=== PATIENT | female | born 1950 | race Caucasian/White ===

== ENCOUNTER 2021-10-06 09:35 | Inpatient (IN) ==
[~2021-10-06 09:35] MED LIST: Buffered Lidocaine 1% SYRIN 1 ml INTRADERM ONE; DiMENhydriNATE IV 50 mg/ml 1 ml VIAL IV PUSH ONE; HYDROcodone/ACETAMIN 5/325 mg TAB PO PRN; Lactated Ringers 1000 ml BAG 1,000 ML IV SCH; Metoclopramide 5 MG/ML VIAL (10 mg) IV PRN; Naloxone 0.4 mg VIAL 0.4 mg/ml 1 ml VIAL IV PRN; Ondansetron 4 mg VIAL 2 MG/ML 2 ml VIAL IV PRN; fentaNYL 100 mcg/2 ml 50 MCG/ML VIAL IV PRN
[2021-10-06] MEDS ORDERED: fentaNYL 100 mcg/2 ml 50 MCG/ML VIAL ONE (09:50)
[2021-10-06] MEDS ORDERED: Ondansetron 4 mg VIAL 2 MG/ML 2 ml VIAL ONE (09:50)
[2021-10-06] MEDS ORDERED: diPHENhydraMINE IV 50 MG/ML 1 ml VIAL (BENADRYL) ONE (09:50)
[2021-10-06] MEDS ORDERED: Lidocaine 2% PF 5 ML VIAL ONE (09:50)
[2021-10-06] MEDS ORDERED: Midazolam 2 mg/2 ml VIAL 1 mg/ml 2 ml VIAL (2 mg) ONE (09:50)
[2021-10-06] MEDS ORDERED: Buffered Lidocaine 1% SYRIN 1 ml INTRADERM ONE (10:38)
[2021-10-06] MEDS ORDERED: DiMENhydriNATE IV 50 mg/ml 1 ml VIAL ONE (10:38)
[2021-10-06] MEDS ORDERED: ceFAZolin 2 GM in NS PREMIX 2 GM/100 ML BAG IVPB ONE (10:38)
[2021-10-06] MEDS ORDERED: Phenylephrine IV 10 MG/ML 1 ml VIAL ONE (12:39)
[2021-10-06] MEDS ORDERED: Ondansetron 4 mg VIAL 2 MG/ML 2 ml VIAL IV PRN (12:52)
[2021-10-06] MEDS ORDERED: Ondansetron ODT 4 mg TAB 4 MG TAB PO PRN (12:52)
[2021-10-06] MEDS ORDERED: Magnesium Hydroxide LIQ 30 ML UDC PO PRN (12:52)
[2021-10-06] MEDS ORDERED: Lactulose 30 ml UDC PO PRN (12:52)
[2021-10-06] MEDS ORDERED: diPHENhydraMINE IV 50 MG/ML 1 ml VIAL (BENADRYL) IV PRN (12:52)
[2021-10-06] MEDS ORDERED: Morphine 2 MG/ML SYRINGE IV PRN (12:52)
[2021-10-06] MEDS ORDERED: diPHENhydraMINE 25 mg TAB PO PRN (12:52)
[2021-10-06] MEDS: Lactated Ringers 1000 ml BAG 1,000 ML IV SCH (16:39)
[2021-10-06] MEDS ORDERED: Dextrose 50% Syringe 50 ml 25 GM/50 ML SYRINGE IV PUSH PRN (18:14)
[2021-10-06] MEDS: ceFAZolin 1 GM ADVAN 1 GM in NS 0.9% 50 ML 50 ML IVPB SCH (20:54)
[2021-10-06] MEDS: Magnesium Hydroxide LIQ 30 ML UDC PO SCH (20:56)
[2021-10-07] MEDS: Lactated Ringers 1000 ml BAG 1,000 ML IV SCH (04:14)
[2021-10-07] MEDS: ceFAZolin 1 GM ADVAN 1 GM in NS 0.9% 50 ML 50 ML IVPB SCH ×2 (04:14→11:59)
[2021-10-07 07:11] LABS: Hematocrit 28 % (35-47); Hemoglobin 9.1 g/dL (12.0-16.0); Mean Platelet Volume 6.4 fL (7.4-10.4); Platelet Count 235 10^3/uL (150-450)
[2021-10-07 07:23] LABS: Calcium 8.6 mg/dL (8.6-10.3); Potassium 3.8 mmol/L (3.5-5.0)
[2021-10-07] MEDS ORDERED: Vitamin THERAPEUTIC TAB PO SCH (09:00)
[2021-10-07] MEDS ORDERED: DAPAGLIFLOZIN 5 MG TAB (NF) PO SCH (09:00)
[2021-10-07] MEDS ORDERED: CMC:SitaGLIPtin 100 mg TAB (NF) PO SCH (09:00)
[2021-10-07] MEDS: Magnesium Hydroxide LIQ 30 ML UDC PO SCH (09:06)
[2021-10-07 12:03] VITALS: BP 98/61
== END 2021-10-07 14:50 | disposition home or self-care (01) | DRG 470 ==
LOC: AA 09:35 → SSU 16:23
PROVIDERS: ADMIT Orthopaedic Surgery Adult Reconstructive Orthopaedic Surgery; ATTEND Orthopaedic Surgery Adult Reconstructive Orthopaedic Surgery

== ENCOUNTER 2022-01-30 10:25 | Observation (INO) ==
[~2022-01-30 10:25] MED LIST changes: -DiMENhydriNATE IV 50 mg/ml 1 ml VIAL IV PUSH ONE; -HYDROcodone/ACETAMIN 5/325 mg TAB PO PRN; -Metoclopramide 5 MG/ML VIAL (10 mg) IV PRN; -Naloxone 0.4 mg VIAL 0.4 mg/ml 1 ml VIAL IV PRN; -Ondansetron 4 mg VIAL 2 MG/ML 2 ml VIAL IV PRN; +ceFAZolin 2 GM PREMIX 2 GM/50 ML BAG ONE; -fentaNYL 100 mcg/2 ml 50 MCG/ML VIAL IV PRN
[2022-01-30] MEDS ORDERED: Lidocaine 1% MPF 5 ML VIAL ONE (10:36)
[2022-01-30] MEDS ORDERED: ROPIVACAINE 5 MG/ML 30 ML BTL (0.5%) ONE (10:36)
[2022-01-30] MEDS ORDERED: Midazolam 2 mg/2 ml VIAL 1 mg/ml 2 ml VIAL (2 mg) ONE (11:48)
[2022-01-30] MEDS ORDERED: Ropivacaine 5 MG/ML 20 ML VIAL 0.5% (100 MG) ONE (12:06)
[2022-01-30] MEDS ORDERED: Lidocaine 2% PF 5 ML VIAL ONE (12:34)
[2022-01-30] MEDS ORDERED: Phenylephrine IV 10 MG/ML 1 ml VIAL ONE (12:35)
[2022-01-30] MEDS ORDERED: Dexamethasone IV 4 MG/ML VIAL 1 ml VIAL ONE (13:27)
[2022-01-30] MEDS ORDERED: Ondansetron 4 mg VIAL 2 MG/ML 2 ml VIAL ONE (13:27)
[2022-01-30] MEDS ORDERED: fentaNYL 100 mcg/2 ml 50 MCG/ML VIAL IV PRN (13:35)
[2022-01-30] MEDS ORDERED: diPHENhydraMINE IV 50 MG/ML 1 ml VIAL (BENADRYL) IV PRN ×2 (13:35→13:58)
[2022-01-30] MEDS ORDERED: HYDROmorphone 1 MG/1 ML SYRINGE IV PRN (13:35)
[2022-01-30] MEDS ORDERED: DiMENhydriNATE IV 50 mg/ml 1 ml VIAL IV PUSH PRN (13:35)
[2022-01-30] MEDS ORDERED: Ondansetron 4 mg VIAL 2 MG/ML 2 ml VIAL IV PRN ×2 (13:35→13:58)
[2022-01-30] MEDS ORDERED: Acetaminophen IV 1 GM/100ML 100 ML IV PRN (13:35)
[2022-01-30] MEDS ORDERED: Naloxone 0.4 mg VIAL 0.4 mg/ml 1 ml VIAL IV PRN (13:35)
[2022-01-30] MEDS ORDERED: Magnesium Hydroxide LIQ 30 ML UDC PO PRN (13:58)
[2022-01-30] MEDS ORDERED: Propofol 10 MG/ML 20 ML BTL ONE (13:58)
[2022-01-30] MEDS ORDERED: Lactulose 30 ml UDC PO PRN (13:58)
[2022-01-30] MEDS ORDERED: diPHENhydraMINE 25 mg TAB PO PRN (13:58)
[2022-01-30] MEDS ORDERED: Ondansetron ODT 4 mg TAB 4 MG TAB PO PRN (13:58)
[2022-01-30] MEDS ORDERED: Lactated Ringers 1000 ml BAG 1,000 ML IV SCH (14:00)
[2022-01-30] MEDS ORDERED: ceFAZolin 1 GM ADVAN 1 GM in NS 0.9% 50 ML 50 ML IVPB SCH (14:00)
[2022-01-30] MEDS ORDERED: Dextrose 50% Syringe 50 ml 25 GM/50 ML SYRINGE IV PUSH PRN (17:00)
[2022-01-30] MEDS: ceFAZolin 1 GM in Dextrose 1 GM/50 ML BAG IVPB SCH (20:52)
[2022-01-30] MEDS: Magnesium Hydroxide LIQ 30 ML UDC PO SCH (20:52)
[2022-01-30] MEDS ORDERED: Metformin ER 500 mg TAB (NF) PO SCH (21:00)
[2022-01-31] MEDS: ceFAZolin 1 GM in Dextrose 1 GM/50 ML BAG IVPB SCH ×2 (04:28→12:44)
[2022-01-31 06:07] LABS: Hematocrit 29 % (35-47); Hemoglobin 9.5 g/dL (12.0-16.0); Mean Platelet Volume 6.4 fL (7.4-10.4); Platelet Count 284 10^3/uL (150-450)
[2022-01-31 06:57] LABS: Calcium 9.3 mg/dL (8.6-10.3); Potassium 4.3 mmol/L (3.5-5.0); eGFR CKD-EPI 62.5 (>60)
[2022-01-31] MEDS: Magnesium Hydroxide LIQ 30 ML UDC PO SCH (08:35)
[2022-01-31] MEDS ORDERED: DAPAGLIFLOZIN 5 MG TAB (NF) PO SCH (09:00)
[2022-01-31] MEDS ORDERED: Vitamin THERAPEUTIC TAB PO SCH (09:00)
[2022-01-31] MEDS ORDERED: SitaGLIPtin 100 mg TAB (NF) PO SCH (09:00)
[2022-01-31 11:39] VITALS: BP 122/68
== END 2022-01-31 14:40 | disposition home or self-care (01) ==
LOC: INTOOBSV 10:25 → AA 10:25 → EDSTATUS 12:15 → SSU 17:15
PROVIDERS: ADMIT Orthopaedic Surgery Adult Reconstructive Orthopaedic Surgery; ATTEND Orthopaedic Surgery Adult Reconstructive Orthopaedic Surgery

== ENCOUNTER 2023-06-27 09:22 | Inpatient (IN) ==
[~2023-06-27 09:22] MED LIST changes: +Lidocaine 2% PF 5 ML VIAL ONE; +Midazolam 2 mg/2 ml VIAL 1 mg/ml 2 ml VIAL (2 mg) ONE; +Propofol 10 MG/ML 20 ML BTL ONE; -ceFAZolin 2 GM PREMIX 2 GM/50 ML BAG ONE; +fentaNYL 100 mcg/2 ml 50 MCG/ML VIAL ONE
[2023-06-27 10:18] LABS: Rapid COVID-19 Molecular Undetected (Undetected)
[2023-06-27] MEDS ORDERED: ceFAZolin 2 GM in NS PREMIX 2 GM/100 ML BAG IVPB ONE (10:19)
[2023-06-27] MEDS ORDERED: ROPIVACAINE 5 MG/ML 30 ML BTL (0.5%) ONE (10:22)
[2023-06-27] MEDS ORDERED: Bupivacaine-MPF SPINAL 7.5 MG/ML - 2ML AMP ONE (10:57)
[2023-06-27] MEDS ORDERED: Dexamethasone IV 4 MG/ML VIAL 1 ml VIAL ONE (11:53)
[2023-06-27] MEDS ORDERED: Ondansetron 4 mg VIAL 2 MG/ML 2 ml VIAL ONE (11:53)
[2023-06-27] MEDS ORDERED: Propofol 10 MG/ML 20 ML BTL ONE (12:55)
[2023-06-27] MEDS ORDERED: fentaNYL 100 mcg/2 ml 50 MCG/ML VIAL IV PRN (13:09)
[2023-06-27] MEDS ORDERED: Ondansetron 4 mg VIAL 2 MG/ML 2 ml VIAL IV PRN ×2 (13:09→14:13)
[2023-06-27] MEDS ORDERED: Acetaminophen IV 1 GM/100ML 1,000 MG/100 ML BAG IV PRN (13:09)
[2023-06-27] MEDS ORDERED: HYDROmorphone 1 MG/1 ML SYRINGE IV PRN (13:09)
[2023-06-27] MEDS ORDERED: Naloxone 0.4 mg VIAL 0.4 mg/ml 1 ml VIAL IV PRN (13:09)
[2023-06-27] MEDS ORDERED: Acetaminophen IV 1 GM/100ML 1,000 MG/100 ML BAG IV ONE (13:30)
[2023-06-27] MEDS ORDERED: Ondansetron ODT 4 mg TAB 4 MG TAB PO PRN (14:13)
[2023-06-27] MEDS ORDERED: Lactulose 30 ml UDC PO PRN (14:13)
[2023-06-27] MEDS ORDERED: Magnesium Hydroxide LIQ 30 ML UDC PO PRN (14:13)
[2023-06-27] MEDS ORDERED: Morphine 2 MG/ML SYRINGE IV PRN (14:13)
[2023-06-27] MEDS ORDERED: ceFAZolin 1 GM ADVAN 1 GM in NS 0.9% 50 ML 50 ML IVPB SCH (15:00)
[2023-06-27] MEDS: Lactated Ringers 1000 ml BAG 1,000 ML IV SCH (16:06)
[2023-06-27] MEDS: ceFAZolin 1 GM ADVAN 1 GM in NS 0.9% 50 ML 50 ML IVPB SCH (17:11)
[2023-06-27] MEDS: Magnesium Hydroxide LIQ 30 ML UDC PO SCH (20:47)
[2023-06-27] MEDS ORDERED: MAGNESIUM GLUCONATE 500 MG PO SCH (21:00)
[2023-06-27] MEDS ORDERED: COENZYME Q10 100 MG PO SCH (21:00)
[2023-06-28] MEDS: ceFAZolin 1 GM ADVAN 1 GM in NS 0.9% 50 ML 50 ML IVPB SCH ×2 (01:59→08:51)
[2023-06-28] MEDS: Lactated Ringers 1000 ml BAG 1,000 ML IV SCH (01:59)
[2023-06-28 06:02] LABS: Hemoglobin 10.8 g/dL (11.5-14.3); Mean Platelet Volume 6.7 fL (7.5-11.2); Platelet Count 246 10^3/uL (150-450)
[2023-06-28 06:16] LABS: Calcium 9.4 mg/dL (8.6-10.3); Creatinine, Serum 0.89 mg/dL (0.51-0.95); Potassium 4.4 mmol/L (3.5-5.0); eGFR CKD-EPI 68.8 (>60)
[2023-06-28] MEDS: Magnesium Hydroxide LIQ 30 ML UDC PO SCH (07:56)
[2023-06-28] MEDS ORDERED: SEMAGLUTIDE 7 MG PO SCH (09:00)
[2023-06-28] MEDS ORDERED: DAPAGLIFLOZIN 5 MG TAB (NF) PO SCH (09:00)
[2023-06-28] MEDS ORDERED: Vitamin THERAPEUTIC TAB PO SCH (09:00)
[2023-06-28 10:24] VITALS: BP 101/65
== END 2023-06-28 11:15 | disposition home or self-care (01) | DRG 470 ==
LOC: AA 09:22 → SSU 14:13
PROVIDERS: ADMIT Orthopaedic Surgery Adult Reconstructive Orthopaedic Surgery; ATTEND Orthopaedic Surgery Adult Reconstructive Orthopaedic Surgery